=== PATIENT | female | born 1955 | race Caucasian/White ===

== ENCOUNTER → 2017-03-22 | Outpatient (CLI) | payer OTHER ==
[~2017-03-22] MED LIST: ALBUTEROL SULF8.5 GM IH; BENADRYL25 MG PO; CLOBETASOL PROP60 GM TP; CLONAZEPAM0.5 MG PO; CYANOCOBALAMI100 MCG PO; EPIPEN ADU0.3 MG/0.3 IM; EXFORGE HCT 101 EAC1 PO; HYDROCHLOROTH12.5 M3 PO; HYDROXYZINE HCL25 MG PO; LISINOPRIL40 MG PO; Lovenox SC; MAGNESIUM OXID500 MG PO; MAGNESIUM250 MG PO; METFORMIN HCL500 MG PO; PERCOCET 5/31 TABLET PO; PREDNISONE20 MG PO; Percocet 5/325,Endoc PO; RANITIDINE HCL150 MG PO; SERTRALINE HCL25 MG PO; SERTRALINE HCL50 MG PO; SIMVASTATIN10 MG PO; VITAMIN B CO1 TABLET PO; VITAMIN D31000 UNI2 PO; Vitamin B Complex PO; Vitamin D PO; ZYRTEC10 M3 PO; Zantac PO; Zestoretic,Prinzide PO; celeBREX PO
== END | disposition home or self-care (01) ==
LOC: RAD 13:00
DX: M54.2 Cervicalgia (principal)
CPT/HCPCS: 93880

== ENCOUNTER → 2017-03-31 | Outpatient (CLI) | payer OTHER | END | disposition home or self-care (01) | LOC: AMB 03-22 12:30 | DX: M50.323 Other cervical disc degeneration at C6-C7 level (principal); M50.322 Other cervical disc degeneration at C5-C6 level; M47.22 Other spondylosis with radiculopathy, cervical region | CPT/HCPCS: 62302; 72126 ==

== ENCOUNTER → 2017-06-02 | Outpatient (CLI) | payer OTHER | END | disposition home or self-care (01) | LOC: NUC 10:39 | DX: M43.12 Spondylolisthesis, cervical region (principal); Z96.653 Presence of artificial knee joint, bilateral; R93.7 Abnormal findings on diagnostic imaging of other parts of musculoskeletal system | CPT/HCPCS: 78306; A9503 ==

== ENCOUNTER → 2018-01-19 | Outpatient (CLI) | payer OTHER | END | disposition home or self-care (01) | DX: R13.14 Dysphagia, pharyngoesophageal phase (principal); Z87.01 Personal history of pneumonia (recurrent); Z87.19 Personal history of other diseases of the digestive system | CPT/HCPCS: 92611 GN; G8996 GN; G8997 GN; G8998 GN ==